=== PATIENT | female | born 1965 | race Caucasian/White ===

== ENCOUNTER 2016-09-01 12:51 | Emergency (ER) | payer BC ==
[~2016-09-01] VITALS: Ht 160 cm; Wt 65.0 kg
[~2016-09-01 12:51] MED LIST: HYDR-3580 PO; VEDO1INJ IV
[2016-09-01 12:53] VITALS: BP 129/79; PULSE 98; RESP 17; TEMP 98.5; O2SAT 96
== END 2016-09-01 16:53 | disposition left against medical advice (07) ==
LOC: NETRI 12:51
DX: J00 Acute nasopharyngitis [common cold] (principal)
CPT/HCPCS: 99281

== ENCOUNTER → 2017-07-21 | Day surgery (SDC) | payer BC ==
[~2017-07-21] MED LIST changes: +BUPIVACAINE HCL PF 0.5% 30 ML VIAL ONE; +MAPA500T13 PO; +PROPOFOL 200 MG/20 ML AMP IV ONE; +TRIAMCINOLONE ACETONIDE 40 MG/ML VIAL I-ARTICULR ONE; +methylPREDNISolone ACETATE 40 MG/ML VIAL I-ARTICULR ONE
--- NOTE | 2017-07-23 13:43 | M6 ---
cc: Sharri JONES DATE 07/21/2017 DATE OF 1965 PROCEDURE Fluoroscopically guided injection bilateral sacroiliac joints. PREPROCEDURE NOTE On three previous occasions, we have injected Ms. Marin's bilateral sacroiliac joints and on each occasion she has obtained 100% relief of her usual low back pain for approximately two weeks. She has recently seen Dr. Banuelos who is also recommending fluoroscopically guided injection of her L5-S1 facet joints and we may schedule that in the near future. Today she will be carefully evaluated immediately and we will follow up with her over the next few days to determine how much relief she obtains with her sacroiliac joint injections. PROCEDURE NOTE History and physical was completed and signed. Consent was signed. Procedure site was marked. Medications were listed and reconciled. Pain score was recorded. Allergies were noted. Time out was taken. Fluoroscopy time was recorded where applicable. Sedation was administered or directed by Dr. Jones. The patient was given oxygen. The patient was monitored by a registered nurse. Total procedure time was greater than 15 minutes. IV was started, blood pressure cuff, pulse oximeter and EKG were applied. The patient was placed in the prone position on a Aramis table sedated with small amounts of propofol titrated to effect. Vital signs were monitored and remained stable throughout the procedure. The sacral area was prepped with alcohol and 10% Betadine solution and draped with sterile drapes. Fluoroscopy was used shooting from medial to lateral to clearly visualize the posterior joint line of the bilateral sacroiliac joints. Separate sterile 5-inch 22-gauge spinal needles were advanced into these joints under fluoroscopic guidance. There was negative aspiration for blood or any other type of fluid and the patient was given 2 mL of 0.5% Marcaine, 20 mg of Depo-Medrol, 20 mg of Kenalog at each location. Following this, the patient was taken to the recovery room with stable vital signs neurologically intact. She will be evaluated immediately and with followup. MD NATAN Mejia/DINO /8:15 AM /1:26 PM
== END | disposition home or self-care (01) ==
LOC: PHSDC 06:41
PROVIDERS: ATTEND Pain Medicine Interventional Pain Medicine
DX: M54.5 Low back pain (principal)
CPT/HCPCS: 27096; 99152; J1030; J3301; G0260